=== PATIENT | female | born 1980 | race African-American/Black ===

== ENCOUNTER 2024-04-27 14:10 | Emergency (ER) | payer MEDICAID ==
[~2024-04-27] VITALS: Ht 152.4 cm; Wt 73.0 kg
[~2024-04-27 14:10] MED LIST: ACET-2708 MT; APIX5TAB MT; LEVO-65 MT; LISI-186 MT; P20 MT
[2024-04-27 14:13] VITALS: BP 189/122; PULSE 76; RESP 16; TEMP 96.8; O2SAT 98
== END 2024-04-27 17:20 | disposition left against medical advice (07) ==
LOC: ER 14:15
DX: R51.9 Headache, unspecified (principal); Z53.21 Procedure and treatment not carried out due to patient leaving prior to being seen by health care provider